=== PATIENT | male | born 1945 | race African-American/Black ===

== ENCOUNTER 2017-01-05 17:12 | Emergency (ER) | payer BC, MEDICARE ==
[~2017-01-05] VITALS: Ht 175.3 cm; Wt 81.6 kg
[~2017-01-05 17:12] MED LIST: AMLO10TA2 PO; ASPI-482 PO; ATOR40TA59 PO; CIPR500T94 PO; GLYB5TAB3 PO; METF500T4 PO; OMEP40CA5 PO; RANI300T PO; VALS1TAB22 PO
[2017-01-05] MEDS ORDERED: IV NORMAL SALINE 1000ML BAG 1,000 ML IV ONE (17:45)
--- NOTE | 2017-01-05 18:08 | PHYS DOC ---
Past Medical History Past Medical History: Diabetes-Type II, High Cholesterol, Hypertension, Other Additional Past Medical Histor: neuropathy Past Surgical History: Knee Replacement Alcohol Use: None Drug Use: None Adult General Chief Complaint Chief Complaint: OTHER COMPLAINTS HPI HPI Patient is a 71 year old male presents to the emergency department with complaints of a 6 month history of intermittent voice loss and weakness. Patient has been under the care of his primary care provider as well as a near nose and throat specialist for the same complaints. He states the symptoms have waxed and waned for 6 months. He states the last 2 days they seem to be worse than normal. He denies headache, lightheadedness him a nausea, vomiting, chest pain, abdominal pain, loss of function of extremities, loss of inability to swallow and reports his appetite is good. In attendance with him is his . The reports that the patient's son, who lives out of town, insisted he be brought to the emergency Department for fear he may be having a stroke. The reports that the symptoms are no different than they have been intermittently for the last 6 months. The patient is in agreement with this stating that he just feels weaker for 2 days. Review of Systems Review of Systems Constitutional: Denies fever or chills [] Eyes: Denies change in visual acuity, redness, or eye pain [] HENT: Denies nasal congestion or sore throat [] Respiratory: Denies cough or shortness of breath [] Cardiovascular: Denies chest pain, palpitations, lower extremity edema GI: Denies abdominal pain, nausea, vomiting, bloody stools or diarrhea [] : Denies dysuria or hematuria [] Musculoskeletal: Complains of general weakness Integument: Denies rash or skin lesions [] Neurologic: Denies headache, focal weakness or sensory changes [] Endocrine: Denies polyuria or polydipsia [] Current Medications Current Medications Current Medications Medications (Trade) Dose Ordered Sig/Lisette Start Time Stop Time Status Last Admin Dose Admin Sodium Chloride 1,000 ml @ 1,000 mls/hr 1X ONCE 01/05/17 17:45 01/05/17 18:44 DC 01/05/17 18:08 1,000 MLS/HR Allergies Allergies Allergies Coded Allergies Type Severity Reaction Last Updated Verified No Known Drug Allergies 01/30/14 No Physical Exam Physical Exam Constitutional: Well developed, well nourished, no acute distress, non-toxic appearance. [] HENT: Normocephalic, atraumatic, bilateral external ears normal, mucous membranes dry, no oral exudates, nose normal, voice is diminished but is not hoarse, pharynx without erythema or exudate, no pooling of saliva. The uvula is midline. [] Eyes: PERRLA, EOMI, conjunctiva normal, no discharge. [] Neck: Normal range of motion, no tenderness, supple, no stridor, no meningeal signs [] Cardiovascular:Heart rate regular rhythm, no murmur [] Lungs & Thorax: Bilateral breath sounds clear to auscultation [] Abdomen: Bowel sounds normal, soft, no tenderness, no masses, no pulsatile masses. [] Skin: Warm, dry, no erythema, no rash. [] Back: No tenderness, no CVA tenderness. [] Extremities: No tenderness, no cyanosis, no clubbing, ROM intact, no edema. [] Neurologic: Alert and oriented X 3, normal motor function, normal sensory function, no focal deficits noted. Cranial nerves II through XII grossly intact NIHSS score 0 [] Psychologic: Affect normal, judgement normal, mood normal. [] Current Patient Data Vital Signs Vital Signs Date Time Temp Pulse Resp B/P (MAP) Pulse Ox O2 Delivery O2 Flow Rate FiO2 01/05/17 17:15 98.3 88 24 142/90 (107) 98 Room Air 98.3 Lab Values Laboratory Tests Test 01/05/17 17:59 White Blood Count 6.3 x10^3/uL (4.0-11.0) Red Blood Count 4.17 x10^6/uL (4.30-5.70) L Hemoglobin 13.2 g/dL (13.0-17.5) Hematocrit 39.4 % (39.0-53.0) Mean Corpuscular Volume 95 fL (79-100) Mean Corpuscular Hemoglobin 32 pg (25-35) Mean Corpuscular Hemoglobin Concent 33 g/dL (31-37) Red Cell Distribution Width 14.0 % (11.5-14.5) Platelet Count 176 x10^3/uL (140-400) Neutrophils (%) (Auto) 55 % (31-73) Lymphocytes (%) (Auto) 35 % (24-48) Monocytes (%) (Auto) 7 % (0-9) Eosinophils (%) (Auto) 2 % (0-3) Basophils (%) (Auto) 0 % (0-3) Neutrophils # (Auto) 3.5 x10^3uL (1.8-7.7) Lymphocytes # (Auto) 2.2 x10^3/uL (1.0-4.8) Monocytes # (Auto) 0.4 x10^3/uL (0.0-1.1) Eosinophils # (Auto) 0.1 x10^3/uL (0.0-0.7) Basophils # (Auto) 0.0 x10^3/uL (0.0-0.2) Sodium Level 142 mmol/L (136-145) Potassium Level 3.7 mmol/L (3.5-5.1) Chloride Level 106 mmol/L (98-107) Carbon Dioxide Level 28 mmol/L (21-32) Anion Gap 8 (6-14) Blood Urea Nitrogen 14 mg/dL (8-26) Creatinine 1.0 mg/dL (0.7-1.3) Estimated GFR (Cockcroft-Gault) 88.9 BUN/Creatinine Ratio 14 (6-20) Glucose Level 141 mg/dL (70-99) H Calcium Level 9.6 mg/dL (8.5-10.1) Total Bilirubin 0.9 mg/dL (0.2-1.0) Aspartate Amino Transferase (AST) 14 U/L (15-37) L Alanine Aminotransferase (ALT) 10 U/L (16-63) L Alkaline Phosphatase 67 U/L (46-116) Creatine Kinase 176 U/L (39-308) Creatine Kinase MB (Mass) 0.7 ng/mL (0.0-3.6) Creatine Kinase MB Relative Index 0.4 % (0-4) Troponin I Quantitative < 0.017 ng/mL (0.000-0.055) Total Protein 7.4 g/dL (6.4-8.2) Albumin 4.1 g/dL (3.4-5.0) Albumin/Globulin Ratio 1.2 (1.0-1.7) Laboratory Tests 01/05/17 17:59 Laboratory Tests 01/05/17 17:59 EKG EKG [] Radiology/Procedures Radiology/Procedures CT head and soft tissue neck reviewed by radiologist Dr. Stu Mortensen, no acute abnormalities. [] Course & Med Decision Making Course & Med Decision Making Pertinent Labs and Imaging studies reviewed. (See chart for details) per patient's request, I did speak with his son, who lives out of town, via phone. His son is concerned that his father may be having a stroke and is seeking further evaluation. Dragon Disclaimer Dragon Disclaimer This electronic medical record was generated, in whole or in part, using a voice recognition dictation system. Departure Departure Impression: Primary Impression: Generalized weakness Disposition: 01 HOME, SELF-CARE Condition: STABLE Referrals: JOLENE AC Jr, MD (PCP) Patient Instructions: Weakness Additional Instructions: Follow-up with Dr. Ac, call tomorrow for an appointment. YANNI CRUZ APRN Jan 05, 2017 18:08
[2017-01-05 18:12] LABS: BASO % 0 % (0-3); EOS % 2 % (0-3); HEMATOCRIT 39.4 % (39.0-53.0); HEMOGLOBIN 13.2 g/dL (13.0-17.5); LYMPH # 2.2 x10^3/uL (1.0-4.8); LYMPH % 35 % (24-48); MEAN CORPUSCULAR HEMOGLOBIN 32 pg (25-35); MEAN CORPUSCULAR HGB CONC 33 g/dL (31-37); MEAN CORPUSCULAR VOLUME 95 fL (79-100); MONO % 7 % (0-9); NEUT % 55 % (31-73); PLATELET COUNT 176 x10^3/uL (140-400); RED BLOOD COUNT 4.17 x10^6/uL (4.30-5.70); WHITE BLOOD COUNT 6.3 x10^3/uL (4.0-11.0)
[2017-01-05 18:21] LABS: CALCIUM 9.6 mg/dL (8.5-10.1); GFR 88.9; POTASSIUM 3.7 mmol/L (3.5-5.1)
[2017-01-05 18:27] LABS: ALBUMIN 4.1 g/dL (3.4-5.0); ALBUMIN/GLOBULIN RATIO 1.2 (1.0-1.7); TOTAL BILIRUBIN 0.9 mg/dL (0.2-1.0); TOTAL PROTEIN 7.4 g/dL (6.4-8.2)
--- NOTE | 2017-01-05 18:35 | EKG ---
[facility] [address] [place] [address] Test Date: 2017-01-05 Test Time: 17:47:28 Pat Name: ROHAN AKHTAR Department: Room: Gender: [employer]: : 1945 Requested By: AYNNI CRUZ Order Number: [id number] Reading MD: Diana Reyes Measurements Intervals [place] Rate: 76 P: -53 ME: 156 QRS: -39 QRSD: 128 T: -3 QT: 378 QTc: 430 Interpretive Statements SINUS RHYTHM LEFT ANTERIOR FASCICULAR BLOCK RIGHT BUNDLE BRANCH BLOCK BIFASCICULAR BLOCK Electronically Signed On 01-08-2017 15:28:44 CDT by Diana Reyes
[2017-01-05 18:37] LABS: CKMB MASS 0.7 ng/mL (0.0-3.6)
--- NOTE | 2017-01-05 18:56 | RAD ---
CT HEAD PQRS STATEMENT: One or more of the following in the visualized dose reduction techniques were utilized for this study: 1. Automatic exposure control, 2. Adjustment of the mA and/or kV according to patient size, 3. Use of iterative reconstruction technique INDICATION: weakness x 6 months, prior sent TECHNIQUE: 5 mm contiguous axial images were obtained from the skull base to the vertex in both bone and soft tissue algorithm. FINDINGS: No abnormal attenuation within the brain parenchyma. No evidence of intracranial hemorrhage. No extra-axial fluid collections. No mass effect or midline shift. Ventricular size is appropriate. Basal cisterns are patent. No fractures identified.Gonzales-white differentiation is preserved.Globes and orbits are within normal limits. Paranasal sinuses and mastoid air cells are clear. IMPRESSION: No acute intracranial abnormality. Electronically signed by: Stu Mortensen MD (01/05/2017 6:53 PM) [facility]
--- NOTE | 2017-01-05 19:34 | RAD ---
PQRS STATEMENT: One or more of the following in the visualized dose reduction techniques were utilized for this study: 1. Automatic exposure control, 2. Adjustment of the mA and/or kV according to patient size, 3. Use of iterative reconstruction technique CT NECK WITH CONTRAST HISTORY: difficulty w speech x 3-4 months, no priors TECHNIQUE: Multiple contiguous axial images were obtained through the neck after intravenous administration of iodinated contrast. Coronal and sagittal reformations were created. FINDINGS: Visualized intracranial contents demonstrates no acute abnormality. Partially visualized globes and orbits are within normal limits. The visualized paranasal sinuses are clear. The parotid glands, submandibular glands, and thyroid are unremarkable. No evidence for deep fat fry cook space mass. Parapharyngeal fat is not displaced. There is metallic artifact of the oral cavity but no mass is identified. The laryngeal structures and glottic structures are within normal limits. There is no carotid space mass. No retropharyngeal fluid collection. There is no cervical adenopathy. Lung apices are clear. There is multilevel cervical spondylosis. Impression: Negative CT neck. Specifically, no evidence for Pancoast tumor or obvious neck mass. Electronically signed by: Stu Mortensen MD (01/05/2017 7:31 PM) [facility]
[2017-01-05 20:00] VITALS: BP 166/83
== END 2017-01-05 20:11 | disposition home or self-care (01) ==
LOC: ER 17:12
DX: R53.1 Weakness (principal); R49.1 Aphonia; E11.40 Type 2 diabetes mellitus with diabetic neuropathy, unspecified; E78.00 Pure hypercholesterolemia, unspecified; I10 Essential (primary) hypertension; Z96.659 Presence of unspecified artificial knee joint
CPT/HCPCS: 36415; 70450; 70490; 80053; 82550; 82553; 84484; 85027; 93005; 96360; 99285; C1887; J7030